=== PATIENT | male | born 1995 | race Caucasian/White ===

== ENCOUNTER 2019-07-19 14:56 | Emergency (ER) | payer OTHER, SELFPAY ==
--- NOTE | 2019-07-19 14:59 | ED.BACK ---
HPI - Back Pain/Injury General Chief Complaint: Back Pain/Injury Stated Complaint: Back Injury Time Seen by Provider: 07/19/19 15:13 Source: patient and RN notes reviewed Mode of arrival: ambulatory Limitations: no limitations History of Present Illness HPI Narrative: 23-year-old male presents with concern for back pain. He reports 2 days ago while at work at [employer] he was taking heavy items off the shelf and bending and twisting when he felt a twinge in his mid low back. He reports the pain radiates down his left leg, groin, thigh. Denies loss of bowel or bladder function, denies weakness, denies perianal anesthesia. Reports he is been taking 400 mg ibuprofen approximately twice daily. Denies fever, bruising. Denies direct trauma. MD elicited complaint: back injury Related Data Allergies Allergy/AdvReac Type Severity Reaction Status Date / Time No Known Allergies Allergy Unverified 02/25/18 16:14 Review of Systems Review of Systems: Narrative: CONSTITUTIONAL: Denies malaise, chills, sweats, or fever. CARDIOVASCULAR: Denies chest pain, palpitations, or edema. RESPIRATORY: Denies cough or dyspnea. GASTROINTESTINAL: Denies abdominal pain, nausea, vomiting, diarrhea, denies loss of bowel function GENITOURINARY: Denies dysuria or hematuria. Denies loss of bladder function, denies perianal anesthesia SKIN: Denies bruising, redness MUSCULOSKELETAL: Reports mid low back pain NEUROLOGIC: Denies numbness, weakness PSYCHIATRIC: Denies anxiety or depression. All systems reviewed & are unremarkable except as noted in HPI and below PMFSH Comments At time of signature, agree with nursing past medical, surgical, social and family history. There is no relevant family history pertinent to the presenting complaint Exam Narrative: Exam Narrative: GENERAL: Well-appearing, well-nourished, and in no acute distress. HEAD: Normocephalic, atraumatic. EYES: PERRLA and EOMI. NECK: Supple. No lymphadenopathy. CHEST: Clear to auscultation. No respiratory distress. HEART: Regular rate and rhythm. Distal pulses palpable and equal, cap refill <3 seconds ABDOMEN: Soft, nontender, obese, normal active bowel sounds. No CVA tenderness MUSCULOSKELETAL: Normal range of motion and strength in all extremities; 5/5 strength with hip flexion and extension, dorsiflexion and extension, knee flexion and extension, plantar flexion and extension. Normal sensation in dermatomal distributions with sensitivity to light touch and pain. No midline back tenderness to palpation. No paraspinal tenderness. Transfers from lying to sitting to standing. SKIN: Warm, dry, no rash. No ecchymosis, erythema, open wounds to back. NEURO: No focal deficits. Alert and oriented x3. Reflexes intact. Normal gait. PSYCH: Normal mood and affect Course Course Emergency Course: Patient is aware of diagnosis, understands and agrees to treatment plan. Anticipatory guidance given. Patient agrees to follow-up as directed and is aware of reasons to seek care at the emergency department. Portions of this record may have been created with voice recognition software Vital Signs Vital signs: Vital Signs Temperature 98.4 F 07/19/19 15:05 Pulse Rate 72 07/19/19 15:05 Respiratory Rate 20 07/19/19 15:05 Blood Pressure 137/68 07/19/19 15:05 Pulse Oximetry 100 07/19/19 15:05 Temperature 98.4 F 07/19/19 15:05 Pulse Rate 72 07/19/19 15:05 Respiratory Rate 20 07/19/19 15:05 Blood Pressure 137/68 07/19/19 15:05 Pulse Oximetry 100 07/19/19 15:05 Reviewed. Pt has been instructed to follow up with his primary care provider within the next week regarding his elevated blood pressure today. MDM - Back Pain/Injury MDM Narrative Medical decision making narrative: No risk factors or findings concerning for epidural abscess, diskitis, vertebral osteomyelitis, cord compression, cauda equina, vertebral fracture or bone malignancy, AAA, or pyelonephritis. Patient instructed to consid
[2019-07-19 15:05] VITALS: BP 137/68; PULSE 72; RESP 20; TEMP 36.9; O2SAT 100
== END 2019-07-19 15:29 | disposition home or self-care (01) ==
PROVIDERS: Emergency Provider Nurse Practitioner
DX: M54.5 Low back pain (principal)
CPT/HCPCS: 99213; G0463

== ENCOUNTER 2019-09-18 13:47 | Emergency (ER) | payer OTHER, SELFPAY ==
--- NOTE | ~2019-09-18 | XR_ITS ---
EXAMINATION: XR foot LT min 3V DATE: 09/18/2019 14:17 INDICATION: Left foot pain TECHNIQUE: Dorsoplantar, lateral, and 2 oblique views of the left foot were obtained. COMPARISON: None. FINDINGS: There is no fracture, dislocation, or subluxation. The bones, soft tissues, and joint space s are normal. IMPRESSION: 1. No acute osseous abnormality. Reviewed, dictated and finalized at location A.
[2019-09-18 13:55] VITALS: BP 140/69; PULSE 78; RESP 20; TEMP 37.3; O2SAT 100
--- NOTE | 2019-09-18 13:55 | ED.LOWEXIN ---
HPI - Extremity Injury (Lower) General Chief Complaint: Extremity Injury, Lower Stated Complaint: left foot pain Time Seen by Provider: 09/18/19 14:15 Source: patient and RN notes reviewed Mode of arrival: ambulatory Limitations: no limitations History of Present Illness HPI Narrative: 23-year-old male presents with concern for left foot pain. Reports 2 days ago he dropped a wood pallet on the foot causing pain. He reports no pain at rest, pain with weightbearing. He denies any intervention for his pain. MD complaint: foot injury Related Data Home Medications Medication Instructions Recorded Confirmed No Home Medications 09/18/19 09/18/19 Allergies Allergy/AdvReac Type Severity Reaction Status Date / Time No Known Allergies Allergy Verified 09/18/19 14:02 Review of Systems Review of Systems: Narrative: CONSTITUTIONAL: Denies malaise, chills, sweats, or fever. SKIN: Denies bruising, redness, swelling MUSCULOSKELETAL: Reports left foot pain NEUROLOGIC: Denies numbness, weaknessn. All systems reviewed & are unremarkable except as noted in HPI and below PMFSH Comments At time of signature, agree with nursing past medical, surgical, social and family history. There is no relevant family history pertinent to the presenting complaint Exam Narrative: Exam Narrative: GENERAL: Well-appearing, well-nourished, and in no acute distress. HEAD: Normocephalic, atraumatic. EYES: PERRLA, conjunctivae clear NECK: Supple. CHEST: Speaks in full sentences. No respiratory distress. HEART: Regular rate and rhythm. Normal and equal peripheral pulses. EXTREMITIES: Left foot, digits of left foot have normal strength and sensation, no edema, normal range of motion. 5/5 strength with ankle and digit flexion and extension. Normal sensation with sensitivity to light touch and pain. No open wounds, no skin tenting, no devitalized tissue or atrophy, no trophic changes, no ecchymosis, no obvious deformity, alignment normal, no point tenderness, nearby joints and structures intact. Distal pulses palpable and equal bilaterally, skin warm, dry, pink. Capillary refill less than 3 seconds. SKIN: Warm, dry, no rash. NEURO: Alert and oriented x3. PSYCH: Normal mood and affect Course Course Emergency Course: Patient is aware of diagnosis, understands and agrees to treatment plan. Anticipatory guidance given. Patient agrees to follow-up as directed and is aware of reasons to seek care at the emergency department. Portions of this record may have been created with voice recognition software Vital Signs Vital signs: Vital Signs Temperature 99.2 F 09/18/19 13:55 Pulse Rate 78 09/18/19 13:55 Respiratory Rate 20 09/18/19 13:55 Blood Pressure 140/69 09/18/19 13:55 Pulse Oximetry 100 09/18/19 13:55 Temperature 99.2 F 09/18/19 13:55 Pulse Rate 78 09/18/19 13:55 Respiratory Rate 20 09/18/19 13:55 Blood Pressure 140/69 09/18/19 13:55 Pulse Oximetry 100 09/18/19 13:55 Reviewed. MDM - Extremity Injury (Lower) MDM Narrative Medical decision making narrative: Patients injury and pain is consistent with musculoskeletal etiology. No signs of neurological or vascular compromise on exam. Compartments and tissues are soft without signs of compartment syndrome. Pain is felt appropriate for further evaluation on an outpatient basis. Imaging Data Radiologist's impression: EXAMINATION: XR foot LT min 3V DATE: 09/18/2019 14:17 INDICATION: Left foot pain TECHNIQUE: Dorsoplantar, lateral, and 2 oblique views of the left foot were obtained. COMPARISON: None. FINDINGS: There is no fracture, dislocation, or subluxation. The bones, soft tissues, and joint spaces are normal. IMPRESSION: 1. No acute osseous abnormality. Critical Care Time Critical Care Time Critical Care Time: No Discharge Plan Discharge Clinical Impression: Injury of foot Qualifiers: Encounter type: initial encounter Laterality: left Qualified Code
== END 2019-09-18 14:30 | disposition home or self-care (01) ==
PROVIDERS: Emergency Provider Nurse Practitioner
DX: S99.922A Unspecified injury of left foot, initial encounter (principal); W20.8XXA Other cause of strike by thrown, projected or falling object, initial encounter
CPT/HCPCS: 73630; 99213; G0463

== ENCOUNTER 2020-05-23 10:02 | Emergency (ER) | payer OTHER, SELFPAY ==
[2020-05-23 10:08] VITALS: BP 156/68; PULSE 107; RESP 18; TEMP 38.2; O2SAT 100
--- NOTE | 2020-05-23 10:13 | ED.URI ---
HPI - URI/Sore Throat General Chief Complaint: Upper Respiratory Infection Stated Complaint: Poss Bronchitis Time Seen by Provider: 05/23/20 10:13 Source: patient and RN notes reviewed History of Present Illness HPI Narrative: Patient is a 24-year-old male who presents the urgent care with complaints of sore throat, cough, nausea, vomiting, runny nose for the last 2 days. Patient states when he does get to coughing he tends to have chest pressure and believes he may have bronchitis . Patient denies of any known exposure to strep or Covid. States that he does work at [employer]. Denies taking anything [id number] for his symptoms. No other acute complaints. No acute distress noted. Patient aware of the plan of care. Some parts of this dictation were generated by voice recognition software and may contain typographical and/or grammatical inaccuracies. Related Data Home Medications Medication Instructions Recorded Confirmed No Home Medications 09/18/19 09/18/19 Allergies Allergy/AdvReac Type Severity Reaction Status Date / Time No Known Allergies Allergy Verified 05/23/20 10:18 Review of Systems Review of Systems: Narrative: CONSTITUTIONAL: Denies fever, chills, or sweats. EYES: Denies visual changes, redness, or discharge. ENT: Reports of rhinorrhea, sore throat CARDIOVASCULAR: Denies chest pain, palpitations, or edema. RESPIRATORY: Reports of nonproductive cough without dyspnea GASTROINTESTINAL: Reports of nausea and one episode of vomiting without diarrhea or abdominal pain GENITOURINARY: Denies dysuria or hematuria. SKIN: Denies rash or itching. MUSCULOSKELETAL: Denies back pain, joint pain, or myalgia. NEUROLOGIC: Denies headache, numbness, or weakness. All other systems reviewed are negative, except as documented in HPI. PMFSH Comments At the time of my signature, I reviewed and agree with the nursing past medical, surgical, social, and family history. There is no relevant family history pertinent to the patient complaint. Exam Narrative: Exam Narrative: GENERAL: This is a well-nourished, well-developed patient, in no apparent distress. Poor hygiene HEAD: normocephalic, atraumatic. EYES: PERRL. Sclera clear/white. Vision is grossly intact. EARS: External ears normal, auditory canals clear and without drainage, TMs normal without perforation. Hearing grossly intact. NOSE: External nose normal with no obvious nasal discharge, nares without redness, no rhinorrhea. THROAT: Mucous membranes moist,moderate erythema in the posterior oropharynx with moderate postnasal drainage without exudate NECK: Neck supple, non-tender without lymphadenopathy CARDIOVASCULAR: Regular rate and rhythm without murmurs, gallops, or rubs. RESPIRATORY: Clear to auscultation. Slightly diminished throughout. No wheezes, rales, or rhonchi. SKIN: warm, intact with no suspicious lesions or rash, good texture and turgor. NEURO: awake, alert, and oriented to person, place and time. There were no obvious focal neurologic abnormalities. EXTREMITIES: No clubbing, cyanosis, or edema. Course Vital Signs Vital signs: Vital Signs Temperature 100.8 F H 05/23/20 10:08 Pulse Rate 107 H 05/23/20 10:08 Respiratory Rate 18 05/23/20 10:08 Blood Pressure 156/68 H 05/23/20 10:08 Pulse Oximetry 100 05/23/20 10:08 Temperature 100.8 F H 05/23/20 10:19 Pulse Rate 107 H 05/23/20 10:19 Respiratory Rate 18 05/23/20 10:19 Blood Pressure 156/68 H 05/23/20 10:19 Pulse Oximetry 100 05/23/20 10:19 Reviewed-patient is informed that they may have pre-hypertension or hypertension based on a blood pressure reading in the department. I recommend the patient call the primary care provider listed on their discharge instructions or a physician of their choice this week to arrange follow-up for further evaluation of possible pre-hypertension or hypertension. MDM - URI/Sore Throat MDM Narrative Medical decision making narrative: Reviewed
[2020-05-23 10:19] VITALS: BP 156/68; PULSE 107; RESP 18; TEMP 38.2; O2SAT 100
[2020-05-24 19:10] LABS: SARS-CoV-2 RNA PCR Negative
== END 2020-05-23 11:06 | disposition home or self-care (01) ==
PROVIDERS: Emergency Provider Nurse Practitioner Family; PCP Family Medicine
DX: J06.9 Acute upper respiratory infection, unspecified (principal); Z20.822 Contact with and (suspected) exposure to COVID-19
CPT/HCPCS: 87081; 87426; 87804; 87880; 99213; C9803; G0463; U0003; U0005

== ENCOUNTER 2021-02-18 11:51 | Emergency (ER) | payer OTHER, SELFPAY ==
[2021-02-18 11:56] VITALS: BP 154/94; PULSE 103; RESP 20; TEMP 37; O2SAT 99
--- NOTE | 2021-02-18 12:01 | ED.URI ---
HPI - URI/Sore Throat General Chief Complaint: Upper Respiratory Infection Stated Complaint: cough sore throat dizzy out of breath Time Seen by Provider: 02/18/21 12:07 Source: patient and RN notes reviewed Mode of arrival: ambulatory Limitations: no limitations History of Present Illness HPI Narrative: 25-year-old male presents with concern for 4-day history of cough, sore throat, shortness of breath, dizziness. Reports he has been taking generic cold medicine with little relief. He denies nausea, vomiting, diarrhea, loss of sense of taste or smell. MD elicited complaint: cough and sore throat Related Data Allergies Allergy/AdvReac Type Severity Reaction Status Date / Time No Known Allergies Allergy Verified 05/23/20 10:18 Review of Systems Review of Systems: CONSTITUTIONAL: Denies malaise, chills, sweats, or fever. EYES: Denies visual changes, redness, or discharge. ENT: Reports rhinorrhea, congestion, and sore throat. CARDIOVASCULAR: Denies chest pain, palpitations, or edema. RESPIRATORY: Reports cough, occasional dyspnea. GASTROINTESTINAL: Denies abdominal pain, nausea, vomiting, diarrhea SKIN: Denies rash or itching. MUSCULOSKELETAL: Reports myalgia. NEUROLOGIC: Denies headache. Reports dizziness All systems reviewed & are unremarkable except as noted in HPI and below PMFSH Comments At time of signature, agree with nursing past medical, surgical, social and family history. There is no relevant family history pertinent to the presenting complaint Exam Narrative: GENERAL: Well-appearing, well-nourished, and in no acute distress. HEAD: Normocephalic EYES: PERRLA, conjunctivae clear ENT: Mucous membranes moist. TM pearly escobedo with dull light reflex bilaterally; no tragal tenderness. Oropharynx erythematous without lesions. Tonsils enlarged and without exudate, no drooling, no hoarseness, no trismus, uvula midline. NECK: Supple. No lymphadenopathy CHEST: Clear to auscultation, breath sounds equal. No wheezing, rhonchi, rales, or stridor. No respiratory distress, speaks in full sentences. HEART: Regular rate and rhythm. No murmur heard. SKIN: Warm, dry, no rash. NEURO: Alert and oriented x3. PSYCH: Normal mood and affect Course Course Emergency Course: Patient is aware of diagnosis, understands and agrees to treatment plan. Anticipatory guidance given. Patient agrees to follow-up as directed and is aware of reasons to seek care at the emergency department. Portions of this record may have been created with voice recognition software Vital Signs Vital signs: Vital Signs Temperature 98.6 F 02/18/21 11:56 Pulse Rate 103 H 02/18/21 11:56 Respiratory Rate 20 02/18/21 11:56 Blood Pressure 154/94 H 02/18/21 11:56 Pulse Oximetry 99 02/18/21 11:56 Temperature 98.6 F 02/18/21 11:56 Pulse Rate 103 H 02/18/21 11:56 Respiratory Rate 20 02/18/21 11:56 Blood Pressure 154/94 H 02/18/21 11:56 Pulse Oximetry 99 02/18/21 11:56 Reviewed. Pt has been instructed to follow up with his primary care provider within the next week regarding his elevated blood pressure today. MDM - URI/Sore Throat MDM Narrative Medical decision making narrative: Differential diagnosis considered: Burns virus, strep pharyngitis, allergic rhinitis, upper respiratory tract infection, sinusitis, rhinosinusitis, nasopharyngitis. viral pharyngitis, otitis media, otitis externa, pneumonia, bronchitis, viral cough syndrome, viral syndrome, and influenza. Exam findings show no acute concerns or changes; patient is non-toxic appearing and is in no distress. Patient is appropriate for outpatient treatment and follow-up. Lab Data Attestation: I reviewed the patient's lab results. Critical Care Time Critical Care Time Critical Care Time: No Discharge Plan Discharge Clinical Impression: COVID Patient Disposition: Home, Self-Care Condition: Stable Instructions: How to Recover from COVID-19 at Home (ED) Additional Instructi
== END 2021-02-18 12:20 | disposition home or self-care (01) ==
PROVIDERS: Emergency Provider Nurse Practitioner; PCP Family Medicine
DX: U07.1 COVID-19 (principal)
CPT/HCPCS: 87081; 87426; 87880; 99213; C9803; G0463

== ENCOUNTER 2021-10-31 18:46 | Emergency (ER) | payer OTHER, SELFPAY ==
[2021-10-31 18:55] VITALS: BP 157/73; PULSE 106; RESP 16; TEMP 37.3; O2SAT 100
[2021-10-31 19:00] VITALS: BP 157/73; PULSE 106; RESP 16; TEMP 37.3; O2SAT 100
--- NOTE | 2021-10-31 19:14 | ED.URI ---
HPI - URI/Sore Throat General Chief Complaint: Upper Respiratory Infection Stated Complaint: Sore Throat Time Seen by Provider: 10/31/21 19:14 History of Present Illness HPI Narrative: 25-year-old male presented for complaint of sore throat since yesterday. Endorses strep throat sick contacts at his work. He denies associated fever, headache, nausea, cough or postnasal drainage. Has not taken anything for symptoms. 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 Related Data Home Medications Medication Instructions Recorded Confirmed No Home Medications 10/31/21 10/31/21 Allergies Allergy/AdvReac Type Severity Reaction Status Date / Time No Known Allergies Allergy Verified 10/31/21 18:59 Review of Systems Review of Systems: CONSTITUTIONAL: Denies body aches, fever, chills, or sweats. EYES: Denies visual changes, redness, or discharge. ENT: Denies rhinorrhea, congestion, or otalgia. CARDIOVASCULAR: Denies chest pain, palpitations, or edema. RESPIRATORY: Denies dyspnea. GASTROINTESTINAL: Denies abdominal pain, nausea, vomiting, or diarrhea. SKIN: Denies rash, itching, or wounds. MUSCULOSKELETAL: Denies back pain, joint pain, or myalgia. NEUROLOGIC: Denies headache Exam Narrative: GENERAL: well-appearing EYES: conjunctivae clear ENT: Mucous membranes moist. TMs pearly escobedo with normal light reflex bilaterally; no tragal tenderness. Oropharynx erythematous without lesions. No drooling, no hoarseness, no trismus, uvula midline. No tripod positioning, hot potato voice, or soft palate swelling. NECK: Supple. No lymphadenopathy CHEST: Clear to auscultation, breath sounds equal. HEART: Regular rate and rhythm. No murmur heard. SKIN: Warm, dry, no rash. NEURO: Alert and oriented x3. Course Course Emergency Course: Patient is aware of diagnosis, understands and agrees to treatment plan. Anticipatory guidance given. Patient agrees to follow-up as directed and is aware of reasons to seek care at the emergency department. Portions of this record may have been created with voice recognition software Level of Care: Express Care Visit Vital Signs Vital signs: Vital Signs Temperature 99.1 F 10/31/21 18:55 Pulse Rate 106 H 10/31/21 18:55 Respiratory Rate 16 10/31/21 18:55 Blood Pressure 157/73 H 10/31/21 18:55 Pulse Oximetry 100 10/31/21 18:55 Oxygen Delivery Room Air 10/31/21 18:55 Temperature 99.1 F 10/31/21 19:00 Pulse Rate 106 H 10/31/21 19:00 Respiratory Rate 16 10/31/21 19:00 Blood Pressure 157/73 H 10/31/21 19:00 Pulse Oximetry 100 10/31/21 19:00 Oxygen Delivery Room Air 10/31/21 19:00 MDM - URI/Sore Throat MDM Narrative Medical decision making narrative: strep result reviewed with pt. Advise supportive treatments. Patient is appropriate for outpatient treatment and follow-up. Differential Diagnosis Differential diagnosis: Likely upper respiratory infection, viral infection and pharyngitis Lab Data Labs: Strep Screen Presumptive Negative *(Reference Range: Negative)* Discharge Plan Discharge Clinical Impression: Pharyngitis Qualifiers: Pharyngitis/tonsillitis etiology: unspecified etiology Qualified Code(s): J02.9 - Acute pharyngitis, unspecified Patient Disposition: Home, Self-Care Condition: Stable Instructions: Pharyngitis (ED) Additional Instructions: Rapid strep swab was negative today You will be notified in a few days if the culture comes back positive for strep, and appropriate antibiotics will be called in at that time. if symptoms are due to a viral illness, it is not treated with antibiotics. Viral symptoms can be present for up to 10-14 days. Recommend Flonase spray and Zyrtec if you have sinus congestion/drainage Tylenol 1000mg every 8 hours as needed for pain/fever Soft foods, cool liquids, warm tea. Gargle with warm s
== END 2021-10-31 19:23 | disposition home or self-care (01) ==
PROVIDERS: Emergency Provider Nurse Practitioner Family
DX: J02.9 Acute pharyngitis, unspecified (principal)
CPT/HCPCS: 87081; 87880; 99213; G0463

== ENCOUNTER 2022-03-04 12:13 | Emergency (ER) | payer OTHER, SELFPAY ==
--- NOTE | 2022-03-04 12:15 | ED.URI ---
HPI - URI/Sore Throat General Chief Complaint: Upper Respiratory Infection Stated Complaint: Sore Throat/Congestion Time Seen by Provider: 03/04/22 12:15 Source: patient and RN notes reviewed History of Present Illness HPI Narrative: patient is a 26-year-old male who presents to urgent care with complaints of left-sided facial congestion and sore throat. Patient states it started 2 days ago and he has been taking cough drops. Patient states he has severe left deviated septum which causes the increase in congestion. Patient denies any fever, nausea or vomiting. Denies any ill exposures. No other acute complaints. No acute distress noted. Patient aware of the plan of care. Some parts of this dictation were generated by voice recognition software and may contain typographical and/or grammatical inaccuracies. Related Data Home Medications Medication Instructions Recorded Confirmed phentermine 37.5 mg tablet 37.5 mg PO DAILY 03/04/22 03/04/22 Allergies Allergy/AdvReac Type Severity Reaction Status Date / Time No Known Allergies Allergy Verified 03/04/22 12:25 Review of Systems Review of Systems: CONSTITUTIONAL: Denies fever, chills, or sweats. EYES: Denies visual changes, redness, or discharge. ENT: Reports of left-sided nasal congestion and sore throat CARDIOVASCULAR: Denies chest pain, palpitations, or edema. RESPIRATORY: Denies cough or dyspnea. GASTROINTESTINAL: Denies abdominal pain, nausea, vomiting, or diarrhea. GENITOURINARY: Denies dysuria or hematuria. SKIN: Denies rash or itching. MUSCULOSKELETAL: Denies back pain, joint pain, or myalgia. NEUROLOGIC: Denies headache, numbness, or weakness. All other systems reviewed are negative, except as documented in HPI. PMFSH Comments At the time of my signature, I reviewed and agree with the nursing past medical, surgical, social, and family history. There is no relevant family history pertinent to the patient complaint. Exam Narrative: GENERAL: This is a well-nourished, well-developed patient, in no apparent distress. HEAD: normocephalic, atraumatic. EYES: PERRL. Sclera clear/white. Vision is grossly intact. EARS: External ears normal, auditory canals clear and without drainage, TMs normal without perforation. Hearing grossly intact. NOSE: External nose normal with no obvious nasal discharge, Mild erythema noted to bilateral nares with clear rhinorrhea THROAT: Mucous membranes moist, [id number] erythema noted to posterior oropharynx without exudate or ulceration. Moderate postnasal drainage. NECK: Neck supple, non-tender without lymphadenopathy CARDIOVASCULAR: Regular rate and rhythm without murmurs, gallops, or rubs. RESPIRATORY: Clear to auscultation. Breath sounds equal bilaterally. No wheezes, rales, or rhonchi. SKIN: warm, intact with no suspicious lesions or rash, good texture and turgor. NEURO: awake, alert, and oriented to person, place and time. There were no obvious focal neurologic abnormalities. EXTREMITIES: No clubbing, cyanosis, or edema. Course Course Level of Care: Express Care Visit Vital Signs Vital signs: Vital Signs Temperature 98.8 F 03/04/22 12:20 Pulse Rate 105 H 03/04/22 12:20 Respiratory Rate 18 03/04/22 12:20 Blood Pressure 128/74 03/04/22 12:20 Pulse Oximetry 98 03/04/22 12:20 Oxygen Delivery Room Air 03/04/22 12:20 Temperature 98.8 F 03/04/22 12:25 Pulse Rate 105 H 03/04/22 12:25 Respiratory Rate 18 03/04/22 12:25 Blood Pressure 128/74 03/04/22 12:25 Pulse Oximetry 98 03/04/22 12:25 Oxygen Delivery Room Air 03/04/22 12:25 reviewed MDM - URI/Sore Throat MDM Narrative Medical decision making narrative: due to the lack of resources on rapid strep test - will send a culture and call within 72 hours if culture is positive and antibiotics are necessary. Advised patient to use Tylenol/ ibuprofen as needed. Complete the steroid regimen as prescribed. Use Flonase nasa
[2022-03-04 12:20] VITALS: BP 128/74; PULSE 105; RESP 18; TEMP 37.1; O2SAT 98
[2022-03-04 12:25] VITALS: BP 128/74; PULSE 105; RESP 18; TEMP 37.1; O2SAT 98
== END 2022-03-04 12:35 | disposition home or self-care (01) ==
PROVIDERS: Emergency Provider Nurse Practitioner Family; PCP Family Medicine
DX: J02.9 Acute pharyngitis, unspecified (principal)
CPT/HCPCS: 87081; 99213; G0463

== ENCOUNTER 2022-07-09 14:04 | Emergency (ER) | payer OTHER, SELFPAY ==
[2022-07-09 14:09] VITALS: BP 150/83; PULSE 105; RESP 16; TEMP 37.1; O2SAT 100
--- NOTE | 2022-07-09 14:42 | ED.URI ---
HPI - URI/Sore Throat General Chief Complaint: Upper Respiratory Infection Stated Complaint: sore throat Time Seen by Provider: 07/09/22 14:42 History of Present Illness HPI Narrative: 26-year-old male presented for complaint of sore throat, onset this morning. He denies any associated symptoms. Endorses painful swallowing. He is able to maintain secretions. He has taken ibuprofen for symptoms. He denies known sick contacts. Denies shortness of breath, wheezing, nausea, vomiting, fevers or chills. Related Data Home Medications Medication Instructions Recorded Confirmed ergocalciferol (vitamin D2) 1,250 1,250 mcg PO WEEKLY 07/09/22 07/09/22 mcg (50,000 unit) capsule Allergies Allergy/AdvReac Type Severity Reaction Status Date / Time No Known Allergies Allergy Verified 07/09/22 14:23 Review of Systems Review of Systems: CONSTITUTIONAL: Denies body aches, fever, chills, or sweats. EYES: Denies visual changes, redness, or discharge. ENT: Denies rhinorrhea, congestion, or otalgia. CARDIOVASCULAR: Denies chest pain, palpitations, or edema. RESPIRATORY: Denies dyspnea. GASTROINTESTINAL: Denies abdominal pain, nausea, vomiting, or diarrhea. SKIN: Denies rash, itching, or wounds. MUSCULOSKELETAL: Denies back pain, joint pain, or myalgia. NEUROLOGIC: Denies headache PMFSH Past Medical History Medical History (Updated 07/09/22 @ 14:49 by Georgina Butler, LEATHA) No pertinent past medical history Exam Narrative: GENERAL: Ill-appearing, Nontoxic, no acute distress. EYES: conjunctivae clear ENT: Mucous membranes moist. TM pearly escobedo with normal light reflex bilaterally; no tragal tenderness. Oropharynx erythematous; Tonsils enlarged 3+ with exudate. No drooling, no hoarseness, no trismus, uvula midline. No tripod positioning, hot potato voice, or soft palate swelling. NECK: Supple. bilateral anterior cervical lymphadenopathy CHEST: Clear to auscultation, breath sounds equal. No respiratory distress, speaks in full sentences. HEART: Regular rate and rhythm. No murmur heard. SKIN: Warm, dry, no rash. NEURO: Alert and oriented x3. Course Course Emergency Course: Patient is aware of diagnosis, understands and agrees to treatment plan. Anticipatory guidance given. Patient agrees to follow-up as directed and is aware of reasons to seek care at the emergency department. Portions of this record may have been created with voice recognition software Level of Care: Express Care Visit Vital Signs Vital signs: Vital Signs Temperature 98.8 F 07/09/22 14:09 Pulse Rate 105 H 07/09/22 14:09 Respiratory Rate 16 07/09/22 14:09 Blood Pressure 150/83 H 07/09/22 14:09 Pulse Oximetry 100 07/09/22 14:09 Oxygen Delivery Room Air 07/09/22 14:09 Temperature 98.8 F 07/09/22 14:09 Pulse Rate 105 H 07/09/22 14:09 Respiratory Rate 16 07/09/22 14:09 Blood Pressure 150/83 H 07/09/22 14:09 Pulse Oximetry 100 07/09/22 14:09 Oxygen Delivery Room Air 07/09/22 14:09 MDM - URI/Sore Throat MDM Narrative Medical decision making narrative: strep result reviewed with pt. will treat based on PE and CC. Advise supportive treatments. Patient is appropriate for outpatient treatment and follow-up. Differential Diagnosis Differential diagnosis: Likely upper respiratory infection, viral infection and pharyngitis Lab Data Labs: Strep Screen Presumptive Negative *(Reference Range: Negative)* Discharge Plan Discharge Clinical Impression: Pharyngitis Qualifiers: Pharyngitis/tonsillitis etiology: unspecified etiology Qualified Code(s): J02.9 - Acute pharyngitis, unspecified Patient Disposition: Home, Self-Care Condition: Stable Instructions: Antibiotic Form, Strep Throat (ED) Additional Instructions: - Take the antibiotic as directed. Fever and sore throat typically resolve within one to three days. Most patie
== END 2022-07-09 14:50 | disposition home or self-care (01) ==
PROVIDERS: Emergency Provider Nurse Practitioner Family; PCP Family Medicine
DX: J02.9 Acute pharyngitis, unspecified (principal)
CPT/HCPCS: 87081; 87880; 99213; G0463